=== PATIENT | male | born 1955 | race Caucasian/White ===

== ENCOUNTER → 2017-06-02 | Outpatient (CLI) | payer OTHER ==
[2017-06-03 08:51] LABS: PROSTATE SPECIFIC ANTIGEN 3.6 ng/mL (0.0-4.0); PSA % FREE 17.8 % (.); PSA FREE 0.64 ng/mL
== END ==
LOC: OD 07:40
PROVIDERS: ATTEND Urology
DX: R97.20 Elevated prostate specific antigen [PSA] (principal)
CPT/HCPCS: 36415; 84154

== ENCOUNTER → 2018-10-26 | Outpatient (CLI) | payer OTHER ==
--- NOTE | 2018-10-26 08:52 | RADIOLOGY REPORT (SQ) ---
EXAM DESCRIPTION: U/S ABDOMEN COMPLETE W/O DOP COMPLETED DATE/TIME: 10/26/2018 7:36 am REASON FOR STUDY: LEUKOCYTOSIS (D72.829), NEUTROPHILLA (D72.9) D72.829 ELEVATED WHITE BLOOD CELL CO UNT, UNSPECIFIED D72.9 DISORDER OF WHITE BLOOD CELLS, UNSPECIFIED COMPARISON: None. TECHNIQUE: Dynamic and static grayscale images acquired of the abdomen and recorded on PACS. Additio nal selected color Doppler and spectral images recorded. Note: Study does not meet criteria for complete doppler/duplex scan LIMITATIONS: None. FINDINGS: PANCREAS: The head and body of the pancreas are of normal echogenicity. The tail is obsc ured by overlying bowel gas. LIVER: Fatty liver. The liver measures 22.2 cm in length, hepatomegaly. LIVER VASCULATURE: Normal directional flow of the main portal vein and hepatic veins. GALLBLADDER: Gallstones. The gallbladder wall measures 1.6 mm, normal wall thickness. No pericholec ystic fluid. ULTRASOUND-DETECTED RESTREPO'S SIGN: Negative. INTRAHEPATIC DUCTS AND COMMON DUCT: CBD measures 4.2 mm in diameter, normal. The intrahepatic ducts normal caliber. No filling defects. INFERIOR VENA CAVA: Normal flow. AORTA: No aneurysm. RIGHT KIDNEY: The right kidney measures 11.2 cm in length, normal size. Normal echogenicity. No solid or suspicious masses. No hydronephrosis. No calcifications. LEFT KIDNEY: The left kidney measures 10.1 cm in length, normal size. Normal echogenicity. A 3.5 x 2.6 x 2.5 cm cyst in the upper pole. No hydronephrosis. No calcifications. SPLEEN: The spleen measures 13.2 cm in length, at the upper limits of normal to slightly prominent i n size. PERITONEAL AND PLEURAL SPACES: No ascites or effusions. OTHER: No other significant finding. IMPRESSION: 1. Gallstones. 2. No evidence of biliary obstruction. 3. Fatty liver. Hepatomegaly. 4. The tail of the pancreas is obscured by overlying bowel gas. 5. Left renal cyst. TECHNICAL DOCUMENTATION: JOB ID: [id number] [employer]- All Rights Reserved Reading location - IP/workstation name: [email or web address]
== END ==
LOC: RAD 06:19
PROVIDERS: ATTEND Student in an Organized Health Care Education/Training Program
DX: K80.80 Other cholelithiasis without obstruction (principal); D72.829 Elevated white blood cell count, unspecified; D72.0 Genetic anomalies of leukocytes
CPT/HCPCS: 76700